=== PATIENT | female | born 1935 | race Caucasian/White ===

== ENCOUNTER → 2019-06-19 | Emergency (ER) | payer MEDICARE, BC ==
[~2019-06-19] VITALS: Ht 152.4 cm; Wt 48.1 kg
--- NOTE | 2019-06-19 15:30 | NUR ---
ED Nurse Note: Pt ambulated to ED d/t head laceration. Denied pain/headache upon assessment. Pt is AOx4, calm and cooperative. No signs of acute distress. Placed on bed.
[2019-06-19 15:35] VITALS: BP 179/73
--- NOTE | 2019-06-19 15:50 | NUR ---
ED Nurse Note: ERMD on bedside.
[2019-06-19 17:02] VITALS: BP 168/70
--- NOTE | 2019-06-19 17:02 | NUR ---
ER DISCHARGE NOTE: Pt is cleared to be discharged per ERMD, pt is aox4, on room air, with stable vital signs. pt was given dc instructions, pt was able to verbalize understanding, pt id band removed. pt is able to ambulate with cane. pt took all belongings.
--- NOTE | 2019-06-19 21:40 | Emergency Room Report ---
History of Present Illness General Chief Complaint: Laceration Source: Patient Present Illness HPI 83-year-old female presents ED for evaluation. Brought in by complaining of head laceration status post fall last night. Hit her head. Denies LOC. Pain is dull, 3 out of 10, nonradiating. States tetanus is up-to-date. Denies photophobia or blurry vision. Denies nausea or vomiting. No other aggravating relieving factors. Denies any other associated symptoms Allergies: Coded Allergies: CODEINE (Verified Allergy, Unknown, 06/19/19) Patient History Past Medical History: HTN Past Surgical History: none Pertinent Family History: none Social History: Denies: smoking, alcohol use, drug use Now: No Immunizations: UTD Reviewed Nursing Documentation: PMH: Agreed; PSxH: Agreed Nursing Documentation-PMH Past Medical History: No History, Except For Hx Hypertension: Yes Review of Systems All Other Systems: negative except mentioned in HPI Physical Exam Vital Signs Date Time Temp Pulse Resp B/P (MAP) Pulse Ox O2 Delivery O2 Flow Rate FiO2 06/19/19 15:31 97.3 54 16 179/73 (108) 100 Room Air Sp02 EP Interpretation: reviewed, normal General Appearance: no apparent distress, alert, GCS 15, non-toxic Head: normocephalic, other - 3cm laceration L parietal scalp Eyes: bilateral eye normal inspection, bilateral eye PERRL, bilateral eye EOMI ENT: normal ENT inspection Neck: full range of motion, supple, no meningismus, no bony tend, supple/symm/ no masses Respiratory: normal inspection Cardiovascular #1: normal inspection Gastrointestinal: normal inspection Rectal: deferred Genitourinary: no CVA tenderness Musculoskeletal: normal inspection Neurologic: alert, motor strength/tone normal, oriented x3, sensory intact, responsive, speech normal Psychiatric: normal inspection Skin: no rash Lymphatic: normal inspection Procedures Laceration/Wound Repair Laceration/Wound Repair : Consent: Verbal Wound Location: head Wound's Depth, Shape: linear Wound Explored: clean Betadine Prep?: No Anesthesia: 1% Lidocaine Wound Debrided: None Wound Repaired With: jodee Layer Closure?: No Sterile Dressing Applied?: No Splint Applied?: No Sling Applied?: No Patient Tolerated: Well Complications: None Medical Decision Making Diagnostic Impression: Primary Impression: Head injury Qualified Codes: S09.90XA - Unspecified injury of head, initial encounter Additional Impression: Scalp laceration Qualified Codes: S01.01XA - Laceration without foreign body of scalp, initial encounter ER Course Hospital Course 83 yo F presents with laceration to scalp s/p fall and head injury Differential diagnoses include: skull fx, intracranial injury, concussion Clinical course Patient placed on stretcher. After initial history and physical I ordered CT head. patient declined pain meds CT head shows no acute process. Laceration irrigated. Repaired with jodee. Patient tolerated procedure without difficulty. Discussed findings with patient. Will discharge to home. Safe for discharge for close outpatient follow-up. States she has a PMD Diagnosis - head injury, scalp laceration Stable and discharged to home. wound care isntructions given. have jodee removed in 10 days. Return to ED if symptoms recur or worsen CT/MRI/US Diagnostic Results CT/MRI/US Diagnostic Results : Imaging Test Ordered: CT Head Impression no acute process Last Vital Signs Date Time Temp Pulse Resp B/P (MAP) Pulse Ox O2 Delivery O2 Flow Rate FiO2 06/19/19 17:02 97.3 70 17 168/70 100 Room Air Status: improved Disposition: HOME, SELF-CARE Condition: Stable Referrals: Parveen Chou MD Patient Instructions: Laceration Care, Adult Additional Instructions: return to ED in 10 days for staple removal Basil Naidu MD Jun 19, 2019 21:40
--- NOTE | 2019-06-20 08:00 | Diagnostic Imaging Report ---
Indications: Head trauma, laceration Technique: Spiral acquisitions obtained through the brain. Angled axial and coronal 5 x 5 mm slices were reconstructed. Total dose length product 1363 mGycm. CTDI vol(s) 62 mGy. Dose reduction achieved using automated exposure control Comparison: None Findings: There is mild age-related enlargement of the ventricles and extra axial CSF spaces. There is mild periventricular deep white matter low-attenuation, consistent with chronic microvascular ischemic change. Normal size ventricles and extra axial CSF spaces. There is evidence of prior cataract surgery bilaterally. The sinuses are clear. The mastoids are clear. The calvarium is intact. Impression: Chronic and age-related changes Negative for acute intracranial bleed or mass effect The CT scanner at [facility] is accredited by the [employer] and the scans are performed using protocols designed to limit radiation exposure to as low as reasonably achievable to attain images of sufficient resolution adequate for diagnostic evaluation.
== END | disposition home or self-care (01) ==
LOC: EMR 16:00
DX: S01.01XA Laceration without foreign body of scalp, initial encounter (principal); S09.90XA Unspecified injury of head, initial encounter; Z88.6 Allergy status to analgesic agent; I10 Essential (primary) hypertension; W19.XXXA Unspecified fall, initial encounter; Y92.9 Unspecified place or not applicable
CPT/HCPCS: 70450; 99284